=== PATIENT | male | born 1985 | race Two or more races ===

== ENCOUNTER 2016-05-25 14:34 | Emergency (ER) | payer OTHER ==
[~2016-05-25] VITALS: Ht 188 cm; Wt 158.8 kg
[2016-05-25 15:08] LABS: Basophils # (auto) 0.1 uL; Basophils % (auto) 1.4 % (0.0-2.0); Eosinophils # (auto) 0.2 uL; Eosinophils % (auto) 1.9 % (0.0-7.0); Hematocrit 47.9 % (41.0-53.0); Hemoglobin 16.9 g/dL (13.5-17.5); Lymphocytes # (auto) 1.7 uL; Lymphocytes % (auto) 18.7 % (10.0-50.0); Mean Corpuscular Hgb Conc. 35.2 g/dL (32.0-36.0); Mean Platelet Volume 9.6 fL (7.4-10.4); Monocytes # (auto) 0.9 uL; Monocytes % (auto) 9.6 % (0.0-12.0); Neutrophils # (auto) 6.1 uL; Neutrophils % (auto) 68.4 % (37.0-80.0); Platelet Count (auto) 225 10^3/uL (140-450); Red Cell Distribution Width 12.8 % (11.6-16.0); White Blood Cell 8.9 10^3/uL (4.4-10.8)
[2016-05-25 15:23] LABS: Albumin 3.5 g/dL (3.4-5.0); Anion Gap 9 (5-15); Aspartate Aminotransferase 57 U/L (15-37); BUN/Creatinine Ratio 12.5; Blood Urea Nitrogen 12 mg/dL (7-18); Calcium 8.5 mg/dL (8.5-10.1); Carbon Dioxide 26 mmol/L (21-32); Chloride 107 mmol/L (98-107); GFR African American 119 mL/min; GFR Non-African American 98 mL/min; Glucose 96 mg/dL (74-106); Potassium 3.6 mmol/L (3.5-5.1); Sodium 142 mmol/L (136-145)
[2016-05-25 15:28] LABS: Alkaline Phosphatase 78 U/L (45-117); Bilirubin, Total 0.6 mg/dL (0.2-1.0); Total Protein 7.3 g/dL (6.4-8.2)
[2016-05-25] MEDS ORDERED: MORPHINE SULFATE 4 MG/ML SYRG IV ONE (15:30)
[2016-05-25] MEDS ORDERED: ONDANSETRON HCL 4 MG/2 ML VIAL IV ONE (15:30)
[2016-05-25] MEDS ORDERED: ASPirin 81 mg TAB PO ONE (15:30)
[2016-05-25 16:08] LABS: INR 1.1 (0.9-1.15); Partial Thromboplastin Time 24.4 sec (22.64-33.71); Prothrombin Time 11.3 sec (9.37-12.3)
[2016-05-25 16:21] LABS: B-Type Natriuretic Peptide 20.31 pg/mL (0-100)
[2016-05-25 16:32] LABS: Temperature: 22.7 C (20.0-25.0)
[2016-05-25 18:41] VITALS: BP 135/87
== END 2016-05-25 18:48 | disposition home or self-care (01) ==
LOC: ER 14:38
DX: R07.89 Other chest pain (principal); I10 Essential (primary) hypertension; Z79.82 Long term (current) use of aspirin; F17.210 Nicotine dependence, cigarettes, uncomplicated
CPT/HCPCS: 36415; 71010; 80053; 83735; 83880; 84484; 85025; 85379; 85610; 85730; 93005; 94761; 96374; 96375; 99285; J2270; J2405

== ENCOUNTER 2016-05-31 21:35 | Emergency (ER) | payer OTHER ==
[~2016-05-31] VITALS: Ht 188 cm; Wt 158.8 kg
[2016-05-31 22:55] LABS: Basophils # (auto) 0 uL; Basophils % (auto) 0.4 % (0.0-2.0); Eosinophils # (auto) 0.1 uL; Eosinophils % (auto) 1.5 % (0.0-7.0); Hematocrit 50.5 % (41.0-53.0); Hemoglobin 17.2 g/dL (13.5-17.5); Lymphocytes # (auto) 1.7 uL; Lymphocytes % (auto) 17.7 % (10.0-50.0); Mean Corpuscular Hemoglobin 31.5 pg (28.0-32.0); Mean Corpuscular Hgb Conc. 34.1 g/dL (32.0-36.0); Mean Corpuscular Volume 92.3 fL (80.0-100.0); Mean Platelet Volume 9.8 fL (7.4-10.4); Monocytes # (auto) 0.7 uL; Monocytes % (auto) 7.2 % (0.0-12.0); Neutrophils # (auto) 7.1 uL; Neutrophils % (auto) 73.2 % (37.0-80.0); Platelet Count (auto) 226 10^3/uL (140-450); White Blood Cell 9.7 10^3/uL (4.4-10.8)
[2016-05-31 23:27] LABS: Albumin 3.8 g/dL (3.4-5.0); Alkaline Phosphatase 77 U/L (45-117); Anion Gap 11 (5-15); Aspartate Aminotransferase 44 U/L (15-37); BUN/Creatinine Ratio 14.7; Bilirubin, Total 0.6 mg/dL (0.2-1.0); Blood Urea Nitrogen 14 mg/dL (7-18); Carbon Dioxide 26 mmol/L (21-32); Chloride 107 mmol/L (98-107); GFR African American 121 mL/min; GFR Non-African American 100 mL/min; Glucose 106 mg/dL (74-106); Magnesium 2.1 mg/dL (1.6-2.6); Potassium 3.5 mmol/L (3.5-5.1); Sodium 144 mmol/L (136-145); Total Protein 7.9 g/dL (6.4-8.2)
[2016-06-01] MEDS ORDERED: ONDANSETRON ODT 4 MG TAB PO ONE (03:15)
[2016-06-01 05:53] VITALS: BP 132/74
== END 2016-06-01 05:51 | disposition home or self-care (01) ==
LOC: ER 21:40
DX: R07.89 Other chest pain (principal); J30.9 Allergic rhinitis, unspecified; I10 Essential (primary) hypertension; F17.210 Nicotine dependence, cigarettes, uncomplicated; R06.02 Shortness of breath; R07.0 Pain in throat; R05 Cough
CPT/HCPCS: 36415; 71010; 80053; 83735; 84484; 85025; 93005; 99285; Q0162

== ENCOUNTER 2018-10-25 05:41 | Emergency (ER) | payer OTHER ==
[~2018-10-25] VITALS: Ht 188 cm; Wt 174.6 kg
[2018-10-25 07:11] LABS: Basophils # (auto) 0 uL; Basophils % (auto) 0.6 % (0.0-2.0); Eosinophils # (auto) 0.1 uL; Eosinophils % (auto) 2.5 % (0.0-7.0); Hematocrit 41.2 % (41.0-53.0); Hemoglobin 14.7 g/dL (13.5-17.5); Lymphocytes % (auto) 21.4 % (10.0-50.0); Mean Corpuscular Hgb Conc. 35.6 g/dL (32.0-36.0); Mean Corpuscular Volume 95.7 fL (80.0-100.0); Monocytes # (auto) 0.5 uL; Monocytes % (auto) 11.1 % (0.0-12.0); Neutrophils % (auto) 64.4 % (37.0-80.0); Nucleated Red Blood Cells % 0.3 %; Platelet Count (auto) 77 10^3/uL (140-450); Red Blood Cells 4.31 10^6/uL (4.5-5.90); Red Cell Distribution Width 13.6 % (11.8-14.3); White Blood Cell 4.7 10^3/uL (4.4-10.8)
[2018-10-25] MEDS ORDERED: chlordiazePOXIDE HCL 5 MG CAP PO ONE (07:15)
[2018-10-25 07:30] LABS: Chloride 110 mmol/L (98-107); Sodium 143 mmol/L (136-145)
[2018-10-25 07:40] LABS: Alanine Aminotransferase 57 U/L (16-61); Albumin 3.1 g/dL (3.4-5.0); Alkaline Phosphatase 142 U/L (45-117); Anion Gap 10 (5-15); Aspartate Aminotransferase 91 U/L (15-37); BUN/Creatinine Ratio 8.8; Bilirubin, Total 1.5 mg/dL (0.2-1.0); Blood Urea Nitrogen 6 mg/dL (7-18); Carbon Dioxide 23 mmol/L (21-32); GFR African American 174 mL/min; GFR Non-African American 144 mL/min; Glucose 115 mg/dL (74-106); Total Protein 7.4 g/dL (6.4-8.2)
[2018-10-25 08:10] LABS: Amphetamine Screen, Urine NEGATIVE (NEGATIVE); Barbiturate Scree,Urine NEGATIVE (NEGATIVE); Benzodiazephine Screen, Urine NEGATIVE (NEGATIVE); Cannabinoid Screen, Urine NEGATIVE (NEGATIVE); Cocaine Screen, Urine NEGATIVE (NEGATIVE); Opiate Scree,Urine NEGATIVE (NEGATIVE); Phencyclidine Screen, Urine NEGATIVE (NEGATIVE)
[2018-10-25 08:25] LABS: Urine Bacteria FEW /hpf (None Seen); Urine Blood Negative /uL (Negative); Urine Hyaline Cast FEW /lpf (0 - 2); Urine Mucus FEW (None Seen); Urine WBC 15 /hpf (0 - 3)
[2018-10-25] MEDS ORDERED: PROMETHAZINE HCL 25 MG/ML 1ML ONE (08:26)
[2018-10-25] MEDS ORDERED: PROMETHAZINE HCL 25 MG/ML 1ML IV ONE (08:30)
[2018-10-25 08:34] LABS: Urine Specific Gravity 1.035 (1.001-1.035)
[2018-10-25] MEDS ORDERED: POTASSIUM EFFERVESENT TAB 25 MEQ PO ONE (09:00)
[2018-10-25 11:34] VITALS: BP 104/56
== END 2018-10-25 11:36 | disposition home or self-care (01) ==
LOC: EDBD 05:41 → EDSEX 05:41 → ER 05:41
DX: F10.239 Alcohol dependence with withdrawal, unspecified (principal); R07.89 Other chest pain; F41.9 Anxiety disorder, unspecified; I11.0 Hypertensive heart disease with heart failure; I50.9 Heart failure, unspecified; F17.210 Nicotine dependence, cigarettes, uncomplicated; Y90.9 Presence of alcohol in blood, level not specified
CPT/HCPCS: 36415; 71045; 80053; 80307; 80320; 81001; 83690; 83880; 84484; 85025; 93005; 96374; 99284; J2550